=== PATIENT | male | born 1965 | race Caucasian/White ===

== ENCOUNTER 2018-06-13 09:09 | Observation (INO) | payer MEDICAID, OTHER ==
[2018-06-13] MEDS ORDERED: Iohexol 240 (50 ml) PO STA (11:00)
[2018-06-13] MEDS ORDERED: Iohexol 240 (50 ml) ONE (11:11)
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
[2018-06-13 11:20] LABS: BASO # 0.1 K/uL (0.0-0.2); BASO % 0.8 % (0.0-2.0); EOS # 0.2 K/uL (0.0-0.7); EOS % 2.6 % (0.0-4.0); HEMOGLOBIN 15.2 g/dL (12.0-18.0); LYMPH % 35.1 % (20.0-40.0); MEAN CELL VOLUME 90.1 fL (80.0-94.0); MEAN CORPUSCULAR HEMOGLOBIN 31.5 pg (27.0-31.0); MEAN PLATELET VOLUME 8.8 fL (7.2-11.7); MONO # 0.7 K/uL (0.0-0.8); MONO % 8.7 % (0.0-10.0); NEUT # 4.5 K/uL (1.8-7.0); NEUT % 52.8 % (50.0-75.0); NRBC % 0.2 % (0.0-2.0); RBC 4.84 Mil/uL (4.40-5.90); RED CELL DISTRIBUTION WIDTH 13.7 % (11.5-14.5); WHITE BLOOD COUNT 8.6 K/uL (4.8-10.8)
[2018-06-13 11:34] LABS: ALB/GLOB RATIO 1.4 (1.0-2.1); ALBUMIN 4.2 g/dL (3.5-5.0); ALT/SGPT 36 U/L (21-72); AST/SGOT 24 U/L (17-59); BLOOD UREA NITROGEN 5 mg/dL (9-20); CALCIUM 9.2 mg/dl (8.6-10.4); GFR NON-AFRICAN AMERICAN > 60; LIPASE 51 U/L (23-300)
[2018-06-13] MEDS ORDERED: Iodixanol 320 MG/ML 100 ML BOTTLE IV ONE (12:38)
[2018-06-13 13:16] LABS: URINE BILIRUBIN NEGATIVE (NEGATIVE); URINE CLARITY Clear (Clear); URINE COLOR YELLOW (YELLOW); URINE GLUCOSE (UA) Normal (Normal)
[2018-06-13 13:29] LABS: URINE BLOOD NEGATIVE (NEGATIVE); URINE LEUKOCYTE ESTERASE Negative Leu/uL (Negative); URINE PROTEIN NEGATIVE (NEGATIVE); URINE UROBILINOGEN 0.2 mg/dL (0.2-1.0)
--- NOTE | 2018-06-13 14:06 | CT ---
PROCEDURE: CT Abdomen and Pelvis with oral and IV contrast. HISTORY: abd pain COMPARISON: None available. TECHNIQUE: Contiguous axial images of the abdomen and pelvis. Oral and IV contrast was administered. Coronal and Sagittal reformats generated and reviewed. Contrast dose: 100 cc Visipaque IV Radiation dose: Total exam DLP = 423.36 MGy-cm. This CT exam was performed using one or more of the following dose reduction techniques: Automated exposure control, adjustment of the mA and/or kV according to patient size, and/or use of iterative reconstruction technique. FINDINGS: LOWER THORAX: No visible consolidation, pleural effusion, or pneumothorax. Small hiatal hernia/distal esophageal wall thickening. LIVER: Hypoattenuation of the liver compatible with hepatic steatosis. GALLBLADDER AND BILE DUCTS: Unremarkable. PANCREAS: Unremarkable. SPLEEN: Unremarkable. ADRENALS: Unremarkable. KIDNEYS AND URETERS: The kidneys enhance symmetrically. No hydronephrosis or obstructing renal calculus. BLADDER: The urinary bladder appears unremarkable. REPRODUCTIVE: The prostate gland measures approximately 3.9 x 4.1 cm. APPENDIX: The appendix appears within normal limits of caliber. No secondary signs of acute appendicitis. BOWEL: The stomach is nondistended. The bowel loops appear within normal limits of caliber without evidence of intestinal obstruction. Extensive diverticulosis of the rectosigmoid colon. Minimal adjacent stranding of uncertain significance. Acute diverticulitis is not excluded. Correlate clinically. PERITONEUM: No significant free fluid. No definite free air. LYMPH NODES: No bulky lymphadenopathy identified. VASCULATURE: No aortic aneurysm. BONES: No acute osseous abnormality is detected. OTHER FINDINGS: Bilateral fat containing inguinal hernias. IMPRESSION: Extensive diverticulosis of the rectosigmoid colon. Minimal adjacent stranding of uncertain significance. Acute diverticulitis is not excluded. Correlate clinically. Hepatic steatosis.
[2018-06-13] MEDS ORDERED: Piperacillin/Tazobact 3.375 gm 100 ML IVPB STA (15:06)
[2018-06-13] MEDS ORDERED: Piperacillin/Tazobact 3.375 gm 100 ML IVPB ONE (15:13)
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
[2018-06-13] MEDS ORDERED: metroNIDAZOLE IV 500 mg/100 ml 250 MG in Premixed IV 1 EA IVPB SCH (19:00)
[2018-06-14 00:03] VITALS: PULSE 73; RESP 20
[2018-06-14] MEDS: METRONIDAZOLE IVPB SCH ×2 (05:51→14:21)
[2018-06-14] MEDS: PREMIXED IVPB SCH ×2 (05:51→14:21)
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
[2018-06-14 07:14] LABS: HEMOGLOBIN 15.2 g/dL (12.0-18.0); MEAN CELL VOLUME 89.9 fL (80.0-94.0); MEAN CORPUSCULAR HEMOGLOBIN 31.5 pg (27.0-31.0); MEAN PLATELET VOLUME 9.1 fL (7.2-11.7); RBC 4.82 Mil/uL (4.40-5.90); RED CELL DISTRIBUTION WIDTH 13.6 % (11.5-14.5); WHITE BLOOD COUNT 8.1 K/uL (4.8-10.8)
[2018-06-14 07:30] LABS: BLOOD UREA NITROGEN 5 mg/dL (9-20); CALCIUM 9.3 mg/dl (8.6-10.4); GFR NON-AFRICAN AMERICAN > 60
[2018-06-14 09:52] VITALS: BP 135/75; TEMP 98.5; O2SAT 98
[2018-06-14] MEDS ORDERED: Enoxaparin 40 mg Syringe SC SCH (10:00)
--- NOTE | 2018-06-14 10:17 | CP.PCM.PN ---
Subjective - Date & Time of Evaluation Date of Evaluation: 06/14/18 Time of Evaluation: 10:13 - Subjective Subjective: less abd pain no rectal bleeding no fever Objective - Vital Signs/Intake and Output Vital Signs (last 24 hours): Temp Pulse Resp BP Pulse Ox 98.5 F 73 20 135/75 98 06/14/18 08:00 06/14/18 08:00 06/14/18 08:00 06/14/18 08:00 06/14/18 08:00 - Medications Medications: Current Medications Enoxaparin Sodium (Lovenox) 40 mg SC DAILY [facility] Last Admin: 06/14/18 10:01 Dose: 40 mg Ceftriaxone Sodium 1 gm/ (Sodium Chloride) 100 mls @ 100 mls/hr IVPB Q12H ALFONSO PRN Reason: Protocol Last Admin: 06/14/18 10:00 Dose: 100 mls/hr Metronidazole 250 mg/ (Miscellaneous) 50 mls @ 100 mls/hr IVPB Q8H ALFONSO PRN Reason: Protocol Stop: 06/18/18 06:00 Last Admin: 06/14/18 05:51 Dose: 100 mls/hr Pantoprazole Sodium (Protonix Inj) 40 mg IVP DAILY [facility] Last Admin: 06/14/18 10:00 Dose: 40 mg - Labs Labs: 06/14/18 06:53 06/14/18 06:53 - Constitutional Appears: Non-toxic - Head Exam Head Exam: NORMAL INSPECTION - Eye Exam Eye Exam: Normal appearance Pupil Exam: NORMAL ACCOMODATION - ENT Exam ENT Exam: Mucous Membranes Moist - Neck Exam Neck Exam: Normal Inspection - Respiratory Exam Respiratory Exam: Clear to Ausculation Bilateral - Cardiovascular Exam Cardiovascular Exam: REGULAR RHYTHM - GI/Abdominal Exam GI & Abdominal Exam: Soft, Tenderness, Normal Bowel Sounds Additional comments: less tender - Exam Exam: NORMAL INSPECTION - Extremities Exam Extremities Exam: Normal Capillary Refill - Neurological Exam Neurological Exam: Alert, Awake, Normal Gait, Oriented x3 - Psychiatric Exam Psychiatric exam: Normal Mood - Skin Skin Exam: Normal Color Assessment and Plan - Assessment and Plan (Free Text) Assessment: ac abd pain possible diverticulosis improvig Plan: increase diet if tolerated will d/c home with med to f/u with his
--- NOTE | 2018-06-14 13:14 | CP.PCM.PN ---
Subjective - Date & Time of Evaluation Date of Evaluation: 06/14/18 Time of Evaluation: 10:25 - Subjective Subjective: Patient seen today states abdominal pain improved , denies any an/v/a no bleeding reported since admission, tolerated clear liquid hgb stable -15.2 Objective - Vital Signs/Intake and Output Vital Signs (last 24 hours): Temp Pulse Resp BP Pulse Ox 98.5 F 73 20 135/75 98 06/14/18 08:00 06/14/18 08:00 06/14/18 08:00 06/14/18 08:00 06/14/18 11:49 - Medications Medications: Current Medications Enoxaparin Sodium (Lovenox) 40 mg SC DAILY [facility] Last Admin: 06/14/18 10:01 Dose: 40 mg Ceftriaxone Sodium 1 gm/ (Sodium Chloride) 100 mls @ 100 mls/hr IVPB Q12H [facility] PRN Reason: Protocol Last Admin: 06/14/18 10:00 Dose: 100 mls/hr Metronidazole 250 mg/ (Miscellaneous) 50 mls @ 100 mls/hr IVPB Q8H [facility] PRN Reason: Protocol Stop: 06/18/18 06:00 Last Admin: 06/14/18 05:51 Dose: 100 mls/hr Pantoprazole Sodium (Protonix Inj) 40 mg IVP DAILY [facility] Last Admin: 06/14/18 10:00 Dose: 40 mg - Labs Labs: 06/14/18 06:53 06/14/18 06:53 Assessment and Plan - Assessment and Plan (Free Text) Assessment: A/P 53 year old male patient with hx of GERD and DM presents to the ER with c/o diffused abdominal pain that started yesterday. Associated symptoms with nausea , blood in loose stool, and [address] abdomen shows- Extensive diverticulosis of the rectosigmoid colon. Minimal adjacent stranding of uncertain significance seen by Dr. Pastor today No further planned GI intervention, recommends to Advance diet as tolerated ,Continue with antibiotic therapy to complete 7 day course Encourage increased PO water and fiber intake to prevent recurrent constipation outpatient colonoscopy in 8 weeks following resolution of acute symptoms No further planned GI intervention diet advance to blands and tolerated without any problems D/w Dr. De Guzman cleared fro discharge home today and f/u with PMD and Dr. Pastor in 8 weeks, Discharge plan discussed with patietn who understands and agrees with plan RX e prescribed to [facility]
[2018-06-14] MEDS ORDERED: Pneumococcal 23-Valent Vaccine IM ONE (15:09)
== END 2018-06-14 16:28 | disposition home or self-care (01) ==
LOC: C.ER 09:09 → C.9E 15:29 → C.3T 17:04
PROVIDERS: ADMIT Internal Medicine; ATTEND Internal Medicine
DX: K57.30 Diverticulosis of large intestine without perforation or abscess without bleeding (principal); E11.9 Type 2 diabetes mellitus without complications; E78.5 Hyperlipidemia, unspecified; I10 Essential (primary) hypertension; K64.9 Unspecified hemorrhoids; Z87.891 Personal history of nicotine dependence; K21.9 Gastro-esophageal reflux disease without esophagitis
CPT/HCPCS: 36415; 74177; 80048; 80053; 81001; 82948; 83690; 85025; 85027; 96365; 96366; 96367; 96372; 96375; 99285; C9113; G0328; G0378; J0696; J1650; J2543; Q9966; Q9967

== ENCOUNTER 2018-07-16 06:22 | Emergency (ER) | payer MEDICAID, OTHER ==
[2018-07-16 06:35] VITALS: RESP 16; O2SAT 98
[2018-07-16] MEDS ORDERED: Lidocaine 1% w Epi 1:100,000 Inj INJ ONE (07:25)
[2018-07-16] MEDS ORDERED: Lidocaine 2% w Epi 1:100,000 Inj IJ ONE ×2 (07:34→07:35)
--- NOTE | 2018-07-16 07:53 | C.PDOC ---
History Of Present Illness 53 y/o male presents to ED with c/o boil to right axilla for 1 week. Patient states he had a boil on left axilla 3 weeks ago that self drained but right axilla boil has been progressively getting larger. Patient notes he did not take his HTN and DM medication today. Denies fever, trauma, change in sensation, chest pain or any other complaints at this time. Time Seen by Provider: 07/16/18 06:56 Chief Complaint (Nursing): Abnormal Skin Integrity History Per: Patient History/Exam Limitations: no limitations Onset/Duration Of Symptoms: Days Current Symptoms Are (Timing): Still Present Past Medical History Reviewed: Historical Data, Nursing Documentation, Vital Signs Vital Signs: Last Vital Signs Temp 97.9 F 07/16/18 08:12 Pulse 74 07/16/18 08:12 Resp 16 07/16/18 08:12 BP 129/84 07/16/18 08:12 Pulse Ox 98 07/16/18 08:19 - Medical History PMH: Diverticulitis, HTN Surgical History: No Surg Hx Family History: States: No Known Family Hx - Social History Hx Alcohol Use: Yes Hx Substance Use: No - Immunization History Hx Tetanus Toxoid Vaccination: No Hx Influenza Vaccination: Yes Hx Pneumococcal Vaccination: Yes Review Of Systems Except As Marked, All Systems Reviewed And Found Negative. Constitutional: Negative for: Fever, Chills Cardiovascular: Negative for: Chest Pain Respiratory: Negative for: Shortness of Breath Musculoskeletal: Positive for: Other (axilla pain) Skin: Negative for: Rash Physical Exam - Physical Exam Appears: Non-toxic, No Acute Distress Skin: Warm, Dry, No Rash, Other (2cm area of tenderness and erythema with central fluctuance to right axilla, 1 pustule to right axilla) Head: Atraumatic, Normacephalic Eye(s): bilateral: Normal Inspection, EOMI Nose: Normal Oral Mucosa: Moist Neck: Normal ROM, Supple Chest: Symmetrical Cardiovascular: Rhythm Regular Respiratory: Normal Breath Sounds, No Rales, No Rhonchi, No Wheezing Extremity: Normal ROM, Capillary Refill (<2 seconds), No Deformity Neurological/Psych: Oriented x3, Normal Speech, Normal Cognition ED Course And Treatment O2 Sat by Pulse Oximetry: 98 (RA) Pulse Ox Interpretation: Normal Progress Note: Discsused wound care, return precautions and instructed to follow up with physician/clinic in 1-2 days. - Incision & Drainage Of Abscess Anesthesia: Lidocaine 2%, With Epi Prep Used: Sterile Water, Betadine Procedure: Incised W/Scalpel Blade#: (11), Drained Pus, Irrigated Cavity W/Saline, Probed To Break Up Loculations, Packed W/Gauze, Cultures Obtained And Sent To Lab Disposition - Disposition Disposition: HOME/ ROUTINE Disposition Time: 07:56 Condition: STABLE Additional Instructions: Wound check in 2 days. Keep area clean and dry. Monitor your sugar , return to ER right away if it is uncontrolled. 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 - Scribe Statement The provider has reviewed the documentation as recorded by the Dezibelver Fenton All medical record entries made by the Scribe were at my direction and personally dictated by me. I have reviewed the chart and agree that the record accurately reflects my personal performance of the history, physical exam, medical decision making, and the department course for this patient. I have also personally directed, reviewed, and agree with the discharge instructions and disposition.
[2018-07-16 08:19] VITALS: BP 129/84; PULSE 74; TEMP 97.9
== END 2018-07-16 08:12 | disposition home or self-care (01) ==
LOC: C.ER 06:22
DX: L02.411 Cutaneous abscess of right axilla (principal); I10 Essential (primary) hypertension

== ENCOUNTER 2018-09-23 22:20 | Emergency (ER) | payer MEDICAID, OTHER ==
[2018-09-23 22:47] VITALS: BP 118/69; PULSE 84; RESP 20; TEMP 98; O2SAT 98
[2018-09-23] MEDS ORDERED: Lidocaine Hydrochloride 0 ML INJ ONE (23:40)
[2018-09-23] MEDS ORDERED: Lidocaine Hydrochloride 5 ML INJ ONE (23:59)
--- NOTE | 2018-09-24 00:36 | C.PDOC ---
History Of Present Illness 53 year old male with PMHx persistent abscess presents to the ED for evaluation of right axillary abscess for the past 4 days. Patient reports abscess has been progressively worse. Patient also c/o small lumps to his left axilla as well. Patient denies fever, chills, rash, weakness, numbness. Time Seen by Provider: 09/23/18 22:52 Chief Complaint (Nursing): Abnormal Skin Integrity History Per: Patient History/Exam Limitations: no limitations Onset/Duration Of Symptoms: Days (4) Current Symptoms Are (Timing): Still Present Location Of Injury: Right: Arm, Left: Arm Quality Of Symptoms: Painful, Swollen Recent travel outside of the [place]: No Additional History Per: Patient Past Medical History Reviewed: Historical Data, Nursing Documentation, Vital Signs Vital Signs: Last Vital Signs Temp 98 F 09/23/18 22:43 Pulse 84 09/23/18 22:43 Resp 20 09/23/18 22:43 BP 118/69 09/23/18 22:43 Pulse Ox 98 09/23/18 22:43 - Medical History PMH: Diverticulitis, HTN Surgical History: No Surg Hx Family History: States: Unknown Family Hx - Social History Hx Alcohol Use: Yes Hx Substance Use: No - Immunization History Hx Tetanus Toxoid Vaccination: No Hx Influenza Vaccination: Yes Hx Pneumococcal Vaccination: Yes Review Of Systems Constitutional: Negative for: Fever, Chills Gastrointestinal: Negative for: Nausea, Vomiting Musculoskeletal: Positive for: Arm Pain Skin: Positive for: Other (abscess) Neurological: Negative for: Weakness, Numbness Physical Exam - Physical Exam Appears: Non-toxic, No Acute Distress Skin: Normal Color, Warm, Dry Head: Atraumatic, Normacephalic Eye(s): bilateral: Normal Inspection Neck: Normal ROM, Supple Chest: Symmetrical, No Tenderness Respiratory: Normal Breath Sounds Extremity: Normal ROM, Capillary Refill (< 2 seconds), Other (3x4 cm tender fluactuant mass right axilla. Left axilla small indurated masses non fluctuant) Pulses: Left Radial: Normal, Right Radial: Normal Neurological/Psych: Oriented x3, Normal Speech, Normal Cognition Gait: Steady ED Course And Treatment O2 Sat by Pulse Oximetry: 98 (On RA) Pulse Ox Interpretation: Normal Progress Note: Patient was educated on proper wound care. Patient was given antibiotics and advised to follow up with PMD and surgeon for further evaluation. - Incision & Drainage Of Abscess Anesthesia: Lidocaine 1% Used During Procedure: Continuous Pulse Oximetry Prep Used: Sterile Water, Betadine Procedure: Incised W/Scalpel Blade#:, Drained Pus, Irrigated Cavity W/Saline, Probed To Break Up Loculations (Pt was uncooperative and refuses to allow probing of loculations. area packed mildly- pt is refusing packing, area dressed), Packed W/Gauze Disposition Counseled Patient/Family Regarding: Diagnosis, Need For Followup, Rx Given - Disposition Referrals: Reyes Estrada MD [Staff Provider] - Disposition: HOME/ ROUTINE Disposition Time: 00:33 Condition: STABLE Additional Instructions: Take medications as directed tylenol or advil for pain Wound check in 2 days Follow up with PMD / surgeon- make appointment Return to ER if worse Prescriptions: Clindamycin [Cleocin] 300 mg PO QID #28 cap Instructions: Abscess Incision and Drainage (DC) Forms: [employer] (Cape Verdean) - Clinical Impression 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 - Scribe Statement The provider has reviewed the documentation as recorded by the Scribe Jeff Sanchez All medical record entries made by the Scribe were at my direction and personally dictated by me. I have reviewed the chart and agree that the record accurately reflects my personal performance of the history, physical exam, medical decision making, and the department course for this patient. I have also personally directed, reviewed, and agree with the discharge instructions and disposition.
== END 2018-09-24 00:39 | disposition home or self-care (01) ==
LOC: C.ER 22:20
DX: L02.411 Cutaneous abscess of right axilla (principal)